=== PATIENT | male | born 1980 | race Caucasian/White ===

== ENCOUNTER → 2019-12-08 | Outpatient (REF) | payer OTHER ==
[2019-12-08 18:28] LABS: MALB URINE SIEMENS 26.9 MG/L; MAU/CREAT RATIO 24.4 MCG/MG (0.0-30.0)
== END ==
LOC: M LAB REF 16:51
PROVIDERS: ATTEND Nurse Practitioner Family
DX: E11.65 Type 2 diabetes mellitus with hyperglycemia (principal)

== ENCOUNTER → 2020-09-11 | Outpatient (REF) ==
--- NOTE | 2020-09-11 13:29 | REP ---
INDICATION: ARTHRITIS. COMPARISON: None. TECHNIQUE: Bilateral shoulder series: 6 views. FINDINGS: There is normal alignment of the glenohumeral and acromioclavicular joints bilaterally. Mild hypertrophy of the distal clavicle is seen bilaterally consistent with mild osteoarthritis. There is minimal inferior glenoid spurring on the right. Glenohumeral articulations are otherwise unremarkable. Periarticular soft tissues are normal. The visualized ribs are unremarkable. IMPRESSION: Mild bilateral AC joint hypertrophy of the distal clavicle and minimal spurring of the inferior glenoid on the right. Otherwise negative. <Electronically signed by Erik Stiles > 09/11/20 [id number]
--- NOTE | 2020-09-11 13:38 | REP ---
INDICATION: ARTHRITIS. COMPARISON: None. TECHNIQUE: Bilateral hand series: Total of 8 views. FINDINGS: Four views of each hand demonstrate overall normal mineralization. Joint spaces are preserved. No bony erosive changes seen. Soft tissues are unremarkable. IMPRESSION: Negative radiographs of the hands bilaterally.. <Electronically signed by Erik Stiles > 09/11/20 [id number]
--- NOTE | 2020-09-11 13:43 | REP ---
INDICATION: ARTHRITIS COMPARISON: None. TECHNIQUE: Four views left ankle. FINDINGS: There is no evidence of acute fracture, dislocation, or intrinsic bone disease.Mild diffuse spurring of the distal tibia. The ankle mortise is anatomic. Small round calcific density along the medial malleolus may represent an old avulsion fracture. IMPRESSION: No fracture or dislocation. Mild diffuse spurring distal tibia with probable small old avulsion fracture medial malleolus. <Electronically signed by Ramakrishna Gleason > 09/11/20 [id number]
--- NOTE | 2020-09-11 13:47 | REP ---
INDICATION: ARTHRITIS. COMPARISON: None. TECHNIQUE: Three AP and lateral views lumbar spine. FINDINGS: There is no compression fracture. There is normal lumbar lordosis with no evidence for spondylolysis or spondylolisthesis. There is mild spurring of L4. There is mild narrowing and subchondral sclerosis at L5-S1. The posterior elements are intact. Oval calcific density in the region of the left lower quadrant may represent a calcified lymph node. IMPRESSION: Mild degenerative changes. <Electronically signed by Ramakrishna Gleason > 09/11/20 [id number]
--- NOTE | 2020-09-11 13:48 | REP ---
INDICATION: ARTHRITIS COMPARISON: None. TECHNIQUE: Three views right knee. FINDINGS: There is no evidence of acute fracture, dislocation, or intrinsic bone disease.There is mild spurring of the patella diffusely. Joint spaces are unremarkable. IMPRESSION: No fracture or dislocation. Patellar spurring. <Electronically signed by Ramakrishna Gleason > 09/11/20 [id number]
== END ==
LOC: M PLAIMG 10:24
PROVIDERS: ATTEND Internal Medicine
DX: M19.90 Unspecified osteoarthritis, unspecified site (principal)